=== PATIENT | male | born 1960 | race Caucasian/White ===

== ENCOUNTER 2017-01-13 08:15 | Outpatient (RCR) | payer OTHER ==
--- NOTE | 2017-01-05 15:14 | PT/OT/ST INITIAL EVALUATION ---
Department of Health and Human Services Form Approved [facility] Care Financing Administration OMB No. [id number] PLAN OF CARE/ASSESSMENT FOR OUTPATIENT REHABILITATION (Complete for Initial Claims Only) 1. PATIENT'S NAME Brendon Huitron 2. ACC # [id number] [facility]. [facility] [id number] 4. PROVIDER NO. [id number] 5. TYPE: PT 6. PRIOR HOSPITALIZATION NA 7. PRIMARY DX Right shoulder pain 8. SECONDARY DX Right shoulder rotator cuff bicipital tendon involvement 9. ONSET DATE Approximately 1 year ago. 10. REFERRAL DATE 12/28/2016 11. SOC. DATE 01/04/2017 12. TIME OF EVAL 8:00 a.m. 12. REFERRING PHYSICIAN Dr. Tovar 13. CHARGES/UNITS NA 14. G CODES NA 15. PRIOR LEVEL OF FUNCTION; PERTINENT HISTORY (Prior therapy results, reason for referral.) S: The patient was referred to physical therapy by Dr. Tovar with the diagnosis of right shoulder pain. The patient reports that he has been having pain that has gradually increased in intensity over the last year. He does not know of any one injury, however, after undergoing x-rays it did demonstrate an old fracture of his right collar bone. The patient also notes falling off a tractor and landing on his right shoulder approximately 20 years ago. The patient works in maintenance for [employer]. The patient notes that the pain does occasionally wake him at night. He describes the pain as being a constant burning pain down the front of his arm and occasionally at the outside of his arm. Occupational and social health history: The patient enjoys riding his motorcycle. Overall health rating: Rates overall health as good. Pain rating: He currently rates the pain to be anywhere from 3 to 10/10. Aggravating factors: The patient notes that certain positions and movements of the arm hurt worse and he has difficulty lowering the arm after it has been elevated due to pain. Past medical history: Includes diabetes, hypertension, back surgery, and carpal tunnel surgery. Current medications: Includes Aleve and ibuprofen as necessary to control pain. 16. INITIAL ASSESSMENT/SAFETY PRECAUTIONS/MEDICAL COMPLICATIONS (Level of function at start of care. Be specific, use objective measures, list problems.) O: APPEARANCE AND OBSERVATION: The patient is a 56-year-old male. He demonstrates slight forward head posture and mildly rounded shoulders. PALPATION: The patient has tenderness to palpation at his right anterior shoulder that travels distally into his biceps muscle belly. Tenderness also noted at his lateral and posterior deltoid region. SPECIAL TESTS: The patient did demonstrate positive Rivers-Kartik impingement test and Neer's impingement test. The patient also had difficulty lowering his arm from an elevated position due to pain at his right shoulder. The patient also demonstrated increased laxity at right shoulder with clunk test. RANGE OF MOTION/FLEXIBILITY: Right shoulder active flexion 161 degrees, abduction 156 degrees, left shoulder active flexion 168 degrees, abduction 173 degrees. Passive range of motion right shoulder flexion 150 degrees, abduction 150 degrees with both pain at end range. External rotation 90 degrees and internal rotation 45 degrees. Left shoulder passive range of motion flexion 167 degrees, abduction 172 degrees. External rotation 90 degrees and internal rotation 53 degrees. STRENGTH: Right shoulder flexion 4+/5 manual muscle test, abduction 5/5 manual muscle test, external rotation 4-/5 manual muscle test with pain. Internal rotation 5/5 manual muscle test. Elbow flexion 4/5 manual muscle test with pain. Left shoulder flexion and abduction 5/5 manual muscle test. External rotation 4+/5 manual muscle test, internal rotation 5/5 manual muscle test and elbow flexion 5/5 manual muscle test. TODAY'S TREATMENT: Included initial evaluation followed by gentle stretching and mobilization to the patient's right shoulder. The patient was instructed on a home exercise program for gentle flexibility and stretching. Ultrasound was performed to the patient's right anterolateral and posterior shoulder region. The treatment was ended with vasopneumatic cold compression and iontophoresis with dexamethasone to the patient's right anterior shoulder. 17. INITIAL POC: (Specify procedures, modalities, short and [facility] goals) A: The patient demonstrates possible rotator cuff and bicipital tendon tear. PROGNOSIS: Fair. The patient may benefit from modalities and manual therapy to decrease inflammation and pain. SHORT TERM GOALS: 1. The patient to be complete with home exercise program in 2 weeks. 2. The patient to demonstrate full passive motion at right shoulder without pain in 3 weeks. 3. The patient to be able to actively elevate and lower right arm without pain in 4 weeks. 4. The patient to demonstrate half a muscle grade improvement and strength at right shoulder without pain in 6 weeks. 5. The patient to report that he is able to perform normal daily activities without having pain at his right shoulder in 8 weeks. P: The patient will be seen 2 times a week over the next 4 weeks. Treatment to include modalities and manual therapy to decrease pain and inflammation. We will progress the patient with gentle stretching, flexibility, stabilization, and light strengthening activities as tolerated. 18. FREQUENCY 19. DURATION 20. FUNCTIONAL LEVEL (End of claim period) 21. PHYSICIAN SIGNATURE ? ON FILE OR ENTER HERE: 22. DATE: I certify the need for these services furnished under this plan of care and if for partial hospitalization. 23. CERTIFICATION FROM THROUGH FORM [id number]
== END 2017-02-04 12:00 | disposition home or self-care (01) ==
LOC: PT 08:15
PROVIDERS: ATTEND Family Medicine
DX: M25.511 Pain in right shoulder (principal)

== ENCOUNTER → 2017-01-24 | Outpatient (CLI) | payer OTHER | LOC: RAD 15:13 | PROVIDERS: ATTEND Family Medicine | DX: M25.511 Pain in right shoulder (principal); M19.011 Primary osteoarthritis, right shoulder; M75.111 Incomplete rotator cuff tear or rupture of right shoulder, not specified as traumatic; Z77.018 Contact with and (suspected) exposure to other hazardous metals | CPT/HCPCS: 70140; 73221 ==